=== PATIENT | male | born 1955 | race Caucasian/White ===

== ENCOUNTER 2017-01-17 20:27 | Inpatient (IN) | payer BC ==
[~2017-01-17] VITALS: Ht 188 cm; Wt 131.2 kg
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
[2017-01-17 21:10] LABS: INR - (THERAPEUTIC) 0.96 (0.92-1.07); PROTIME 10.1 SECONDS (9.8-11.4)
[2017-01-17 22:40] LABS: BILIRUBIN URINE NEGATIVE (NEGATIVE); BLOOD URINE 10 /UL (NEGATIVE); COLOR URINE YELLOW (YELLOW); GLUCOSE URINE NEGATIVE (NEGATIVE); KETONE URINE NEGATIVE (NEGATIVE); LEUKOCYTES URINE NEGATIVE /UL (NEGATIVE); NITRITE URINE NEGATIVE (NEGATIVE); PROTEIN URINE NEGATIVE (NEGATIVE); SPEC GRAVITY URINE 1.015 (1.003-1.035); TURBIDITY URINE CLEAR (CLEAR); UROBILINOGEN URINE NORMAL (NORMAL)
[2017-01-17 22:52] LABS: WBC URINE 0-2 #/HPF (NEGATIVE)
[2017-01-17 22:54] LABS: EPITHELIAL URINE RARE #/HPF (NEGATIVE); RBC URINE 0-2 #/HPF (NEGATIVE)
[2017-01-17 22:55] LABS: BACTERIA URINE RARE (NEGATIVE); MUCUS URINE NEGATIVE (NEGATIVE)
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
--- NOTE | 2017-01-18 05:38 | NUR ---
Significant Event: PATIENT IS ALERT AND ORIENTED X3. FOLLOWS COMMANDS. VSS. EQUAL MODERATE STRENGTH. PERRLA. DENIES JOHNSON. NUMBNESS TO FEET BILAT-NORMAL- HISTORY OF NON-DM NEUROPATHY. SINUS RHYTHM WITH PAC'S. 1+ PULSES BILAT. ROOM AIR-CHEST TUBE, CONTINOUS SUCTION AT 20-KEEP O2 GREATER THAN 90%-IS Q1H. REGULAR DIET-TAKES PILLOWS WHOLE WITH WATER. LAST BM 01/17-ACTIVE X4. ACTIVITY TOLERATED. PIV IN L) HAND WITH NS AT 50 ML/HR, R) AC-SL'D. SLING ORDERED FOR RIGHT ARM. PERCOCET AND DILAUDID PRN FOR PAIN. Follow up: ORTHO CONSULT IN AM.
[2017-01-18 06:01] LABS: BASOPHIL % 0.2 %; EOSINOPHIL # 0.1 K/uL (0.0-0.5); EOSINOPHIL % 0.5 %; HEMATOCRIT 39.5 % (37.0-53.0); HEMOGLOBIN 13.1 g/dL (12.0-17.0); IMMATURE GRANULOCYTE # 0.2 K/uL (0.0-0.3); IMMATURE GRANULOCYTE % 1.9 %; LYMPHOCYTE # 1.9 K/uL (0.8-4.0); LYMPHOCYTE % 17.8 %; MCH 29.5 pg (27.0-34.0); MCHC 33.2 gm/dL (32.0-36.5); MONOCYTE # 0.7 K/uL (0.0-1.0); MONOCYTE % 6.7 %; MPV 9.1 fl (9.4-12.4); NEUTROPHIL # (ANC) 7.6 K/uL (1.4-9.0); NEUTROPHIL % 72.9 %; NRBC % 0 /100WBC (0-0.00); PLATELET COUNT 222 K/uL (150-450); RBC 4.44 M/uL (4.00-6.00); RDW-CV 13.2 % (11.9-14.6); WBC 10.5 K/uL (4.0-11.0)
[2017-01-18 06:15] LABS: ANION GAP 10.8 (10.0-19.0); BLOOD UREA NITROGEN 23 mg/dL (6-24); CALCIUM 8.6 mg/dL (8.5-10.5); CHLORIDE 103 mMol/L (96-110); CO2 26 mMol/L (22-32); CREATININE 0.9 mg/dL (0.6-1.3); ESTIMATED GFR (MDRD EQUATION) > 60; POTASSIUM 3.8 mMol/L (3.7-5.1); SODIUM 136 mMol/L (135-145)
[2017-01-18] MEDS ORDERED: COREG25 MG PO (09:17)
[2017-01-18] MEDS ORDERED: ADVAIR 250-501 EACH INH (09:17)
[2017-01-18] MEDS ORDERED: HYDRODIURIL25 MG PO (09:18)
[2017-01-18] MEDS ORDERED: NEURONTIN300 MG PO (09:18)
[2017-01-18] MEDS ORDERED: MICARDIS80 MG PO (09:19)
[2017-01-18] MEDS ORDERED: MIRAPEX1 MG PO (09:19)
[2017-01-18] MEDS ORDERED: NASONEX17 GM NOSE (09:19)
[2017-01-18] MEDS ORDERED: ALBUTEROL2.5 MG/31 INH (09:20)
[2017-01-18] MEDS ORDERED: ULTRAM50 MG PO (09:20)
[2017-01-18] MEDS ORDERED: VITAMIN B-1000 MCG/M IM (09:22)
[2017-01-18] MEDS ORDERED: PROVENTIL OR V6.7 GM INH (09:23)
--- NOTE | 2017-01-18 18:31 | NUR ---
Significant Event: A/Ox3. Hypertensive 160/85 most recent blood pressure and other VSS. Denies numbness/tingling at this time and follows commands well. Ambulates 1A in room and to chair. Chest tube to R)Anterior chest with continuous suction and had 40ml output during this shift. Continous IV fluids d/c'd today. Requested Percocet 2 tabs approximately every 4 hours. Rates pain 4-5 and currently tolerable at 4/10. Takes oral antibiotic for previous bronchitis. Needs a lot of encouragement with incentive spirometer. Uses R)arm sling prn for comfort. at bedside. Calm and cooperative with cares. Follow up:
--- NOTE | 2017-01-18 18:41 | NUR ---
01/18/17: ZAHRAA MEDEIROS,RN HAS READ/REVIEWED CRYSTAL HERMAN'S RN CHARTING AND AGREES.
--- NOTE | 2017-01-19 04:35 | NUR ---
Significant Event: PATIENT IS ALERT AND ORIENTED X3. FOLLOWS COMMANDS. VSS. PERRLA. NEUROPATHY TO FEET BILAT. PAIN CONTROLLED WITH PO PERCOCET AND IVP DILUADID. SINUS RHYTHM. 1+ PULSES BLE. ROOM AIR. CHEST TUBE TO RIGHT UPPER CHEST WITH CONTINOUS SUCTION AT 20. KEEP O2 GREATER THAN 90%-PUSH IS Q1H. REGULAR DIET-ACTIVE BOWELS-ON SENNA. 1A GB. L) HAND AND R) AC PIV'S. NO CREPITUS. DRESSING INTACT. 70 ML OUTPUT. RIGHT ARM SLING-PRN. DOES HAVE A PRODUCTIVE COUGH-DARK IN COLOR. Follow up: MONITOR CHEST TUBE.
--- NOTE | 2017-01-19 15:11 | NUR ---
Introduced self and role of care management to pt. PT lives in and [place] and his [place]. At this time he is still with chest tube and gets short of breath when up but hoping the plans will be home. is concerned and is aware this is something later down the road about the mass on his kidney. I explained I will update his nurse Asa so she can speak to md. I did update Asa RN and note placed on the chart. WIll continue to follow and assist as needed.
--- NOTE | 2017-01-19 15:12 | NUR ---
Significant Event: Alert & oriented. VSS, afebrile, sats low 90's on room air. Pt feels breathing is improving but some shortness of breath with activity. Worked with PT/OT. Chest tube changed to water seal. Milk of Mag given, no BM yet but passing gas. Percocet given for pain control. Sling to R) arm. CSM intact with chronic neuropathy to bilat feet. Follow up: Chest X-ray Thursday.
--- NOTE | 2017-01-20 04:33 | NUR ---
Significant Event: The patient is alert and oriented x3. Denies Numbness and Tingling tonight. VSS. On 1L oxgyen per NC. Moves all extremities spontaneously and to commmand. Right arm moves with difficulty due to scapula fracture. Right arm in a sling for comfort. PIV to the Left hand and Right AC saline locked. Complaints of pain to his ribs and scapula gave Percocet last at 0332. Chest tube in his right chest to waterseal. Dressing changed this shift, 80ML Out this shift. Bruising to right chest. Up with SBA. SOB with activity. Follow up:
--- NOTE | 2017-01-20 13:36 | NUR ---
Significant Event: Cares from 0688-1133. A/Ox3. CSM WNL. VSS. Aumbulates SBA and has continuous IV fluids in left AC. Dressing to right groin c/d/i. History of a left eye droop. Appears to have strong strength in upper and lower extremities equally. Denies pain or discomfort throughout morning. MRI done this morning. Calm and cooperative with cares. Follow up:
--- NOTE | 2017-01-20 13:43 | NUR ---
Significant Event: Cares from [id number]. A/Ox3. VSS and on room air. Ambulates SBA. Chest tube to right chest on water seal. Percocet last at 1130. Physician spoke with patient and family today and telemetry d/c'd. Chest tube possibly going to be removed tomorrow. Wears sling to right arm prn for comfort. Denies numbness or tingling and follows commands without difficulty. at bedside. Calm and cooperative with cares. Follow up:
--- NOTE | 2017-01-20 14:16 | NUR ---
01/20/17: ZAHRAA MEDEIROS,RN HAS READ/REVIEWED CRYSTAL HERMAN'S RN CHARTING AND AGREES. (SHE WAS PRIMARY NURSE AND TOOK OVER PT CARES FROM [id number] AND I WAS OVERSEEING HER CARES).
--- NOTE | 2017-01-20 19:47 | NUR ---
Significant Event: TOOK OVER PT CARES AT 1400. NO CHANGES NOTED FROM PREVIOUS ASSESSMENTS. 2 PERCOCETS LAST GIVEN AT 1539. 120 ML NOTED FROM CHEST TUBE. HAS BEEN RESTING COMFORTABLY IN THE CHAIR. Follow up: CONTINUE TO MONITOR
--- NOTE | 2017-01-21 06:53 | NUR ---
Significant Event:Patient A/O x 3. Perrla. Chronic neuropathy to bilateral feet, states not painful this shift. Follows commands. RUE weaker due to fx. Sling intact for comfort. No telemetry order. Edema glove to right hand. Lungs clear and dim throughout. 1 L of 02 while sleeping. Uses IS and flutter valve per self. Pain with coughing. Chest tube intact to right side. 110 ml for output this shift. Dressing intact. Regular diet. Bowel sounds active. BM yesterday. SBA. IV to right AC saline locked. Percocet given for rib pain last at 0345 x 2 tabs, relief noted. Follow up: Possibly home today?
--- NOTE | 2017-01-21 13:03 | NUR ---
Social visit with pt and today. He had a bad night but hoping today will be better. He is up walking and doing ok. He plans on home when ready. They live in a trailer house with only 2 steps in, nice recliner and I did mention a toliet seat riser just in case. He is not using any dme. He does not think he will need swingbed and I agreed because he is walking 300ft stand by assistance. Plan now for surgery on his kidney in January. He states he does doctor in [facility] if needed. AT this time will assist as needed.
--- NOTE | 2017-01-21 13:41 | NUR ---
Significant Event: PATIENT A/O X 3. FOLLOWS COMMANDS. N/T INTERMITTENTLY TO LOWER EXTREMITIES RELATED TO NEUROPATHY. MODERATE STRENGTH, SLIGHTLY WEAKER IN RT HAND. SLING TO RT ARM FOR COMFORT. LUNGS CLEAR AND DIM ON ROOM AIR. SLIGHT WHEEZE AT TIMES. 2+EDEMA TO RT HAND AND LOWER EXTREMITIES. CHEST TUBE TO WATER SEAL TO RT CHEST. POSSIBLY WILL BE REMOVED TMRW OR IN THE NEXT FEW DAYS DEPENDING ON OUTPUT. RT A/C IV SALINE LOCKED. UP WITH STANDBY ASSIST AND GAITBELT. PAIN FAIRLY TOLERABLE WITH PRN PERCOCET. LAST AT 1335. ORDER FOR NO TELE. Follow up: PAIN CONTROL. CHEST TUBE OUTPUT. HOME DAY AFTER TUBE REMOVED.
--- NOTE | 2017-01-22 04:34 | NUR ---
Significant Event: The patient is alert and oriented x3. Denies numbness and tingling. Moves all extremities spontaneously and to command. Up with SBA, gaitbelt. Right arm moves with difficulty due to scapula fracture. Right arm in a sling for comfort. Pain to the right Scapula and Right ribs gave Percocet at 0337. VSS. On 1L oxygen while sleeping. Edema to bilateral legs/feet, and right hand. PIV to the right AC saline locked. Chest tube to the Right chest to water seal. Output this shift is 50ml. Dressing changed at 1900. Follow up: chest xray
--- NOTE | 2017-01-22 13:05 | NUR ---
Significant Event: Vss. Patient alert and oriented x 3. Follows commands. Rt hand very slightly weaker related to scapula fracture. Rt arm in sling for comfort. Rt chest tube removed today per Dr. Pritchett. Dressing to rt chest dry and intact. C/o pain to rt scapula and rt ribs, tolerated well with PRN Percocet. Up with standby assist and gaitbelt. Follow up: Home tmrw? Pain control.
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
[2017-01-23] MEDS ORDERED: SM SENNA-S TAB1 EACH PO (10:55)
[2017-01-23] MEDS ORDERED: MILK OF MA400 MG/5 M PO (11:00)
[2017-01-23] MEDS ORDERED: PERCOCET 5-3251 EACH PO (11:02)
--- NOTE | 2017-01-23 12:56 | NUR ---
Significant Event: A&O, VSS, afebrile, room air sats 91-92%. Chest xray done early AM. IV removed from R)AC. Discharge paperwork discussed, verbalized understanding. Belongings with patient. Two tabs Percocet given before dismissal. Transport BEE RANCHER escorted to vehicle, dismissed to home.
[2017-02-03] MEDS ORDERED: ASPIRIN325 MG PO (15:47)
[2017-02-03] MEDS ORDERED: CELEBREX200 MG PO (15:48)
== END 2017-01-23 11:37 | disposition disaster alternative care site (69) | DRG 200 ==
LOC: GACC 20:27 → GNTU 22:48
PROVIDERS: Family Medicine; ADMIT Surgery
PROC: 0W9930Z Drainage of Right Pleural Cavity with Drainage Device, Percutaneous Approach (ICD-10-PCS; principal; 2017-01-17)
DX: S27.0XXA Traumatic pneumothorax, initial encounter (principal); S22.41XA Multiple fractures of ribs, right side, initial encounter for closed fracture; G62.9 Polyneuropathy, unspecified; I10 Essential (primary) hypertension; V86.59XA Driver of other special all-terrain or other off-road motor vehicle injured in nontraffic accident, initial encounter; M19.90 Unspecified osteoarthritis, unspecified site; J45.909 Unspecified asthma, uncomplicated; N28.89 Other specified disorders of kidney and ureter; S42.114A Nondisplaced fracture of body of scapula, right shoulder, initial encounter for closed fracture; F17.220 Nicotine dependence, chewing tobacco, uncomplicated
CPT/HCPCS: J1170; J1650; J3010; J7030; Q9967

== ENCOUNTER 2017-02-03 16:00 | Inpatient (IN) | payer BC ==
[~2017-02-03] VITALS: Ht 188 cm; Wt 124.7 kg
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
[~2017-02-03 16:00] MED LIST: ADVAIR 250-501 EACH INH; ALBUTEROL2.5 MG/31 INH; ASPIRIN325 MG PO; CELEBREX200 MG PO; COREG25 MG PO; HYDRODIURIL25 MG PO; MICARDIS80 MG PO; MILK OF MA400 MG/5 M PO; MIRAPEX1 MG PO; NASONEX17 GM NOSE; NEURONTIN300 MG PO; PERCOCET 5-3251 EACH PO; PROVENTIL OR V6.7 GM INH; SM SENNA-S TAB1 EACH PO; ULTRAM50 MG PO; VITAMIN B-1000 MCG/M IM
[2017-02-10 06:07] LABS: BASOPHIL % 0.4 %; EOSINOPHIL # 0.1 K/uL (0.0-0.5); EOSINOPHIL % 0.8 %; HEMATOCRIT 37.4 % (37.0-53.0); HEMOGLOBIN 12.5 g/dL (12.0-17.0); IMMATURE GRANULOCYTE # 0.2 K/uL (0.0-0.3); IMMATURE GRANULOCYTE % 1.7 %; LYMPHOCYTE # 1.7 K/uL (0.8-4.0); LYMPHOCYTE % 15.8 %; MCH 29.8 pg (27.0-34.0); MCHC 33.4 gm/dL (32.0-36.5); MONOCYTE % 9.2 %; MPV 8.9 fl (9.4-12.4); NEUTROPHIL # (ANC) 7.8 K/uL (1.4-9.0); NEUTROPHIL % 72.1 %; NRBC % 0 /100WBC (0-0.00); PLATELET COUNT 216 K/uL (150-450); RDW-CV 13.1 % (11.9-14.6); WBC 10.9 K/uL (4.0-11.0)
[2017-02-10 06:22] LABS: ALBUMIN 3.2 gm/dL (3.5-5.0); ALK PHOS 135 IU/L (33-138); ALT 24 IU/L (12-78); AST 14 IU/L (10-40); BLOOD UREA NITROGEN 19 mg/dL (6-24); CALCIUM 9.1 mg/dL (8.5-10.5); CHLORIDE 101 mMol/L (96-110); CO2 26 mMol/L (22-32); CREATININE 0.9 mg/dL (0.6-1.3); ESTIMATED GFR (MDRD EQUATION) > 60; SODIUM 135 mMol/L (135-145); TOTAL BILIRUBIN 0.6 mg/dL (0.0-1.5)
--- NOTE | 2017-02-10 15:34 | NUR ---
Significant Event: Patient came up from PACU at 1130. VSS. CSM WNL. Morphine METROLOGY ENGINEER running at 10/05/19. Dressing was reinforced in PACU with ABD on left side. Drainage marked. 3L/O2. Blanco intact draining dark yellow urine. Patient is on bedrest. Diet is advance astolerated. Encourage IS. Follow up:
--- NOTE | 2017-02-11 04:54 | NUR ---
Significant Event: Dressing has a large amount of shadow drainage and has not worsened from the previous shift. On 3 L of oxygen nasal cannula. Bedrest. R) foot numb, but patient states that this is normal. Morphine CAMPUS RECRUITER. Blanco catheter. Follow up:
[2017-02-11 05:35] LABS: BASOPHIL % 0.1 %; HEMATOCRIT 33.1 % (37.0-53.0); IMMATURE GRANULOCYTE # 0.2 K/uL (0.0-0.3); IMMATURE GRANULOCYTE % 1.2 %; LYMPHOCYTE % 6.8 %; MCH 29.8 pg (27.0-34.0); MCHC 33.2 gm/dL (32.0-36.5); MCV 89.7 fl (83.0-98.0); MONOCYTE % 6.6 %; MPV 9.2 fl (9.4-12.4); NEUTROPHIL # (ANC) 12.4 K/uL (1.4-9.0); NEUTROPHIL % 85.3 %; NRBC % 0 /100WBC (0-0.00); PLATELET COUNT 194 K/uL (150-450); RBC 3.69 M/uL (4.00-6.00); RDW-CV 12.9 % (11.9-14.6); WBC 14.6 K/uL (4.0-11.0)
[2017-02-11 05:52] LABS: ALBUMIN 2.7 gm/dL (3.5-5.0); ANION GAP 12.5 (10.0-19.0); BLOOD UREA NITROGEN 16 mg/dL (6-24); CALCIUM 8.8 mg/dL (8.5-10.5); CHLORIDE 102 mMol/L (96-110); CO2 27 mMol/L (22-32); CREATININE 1.1 mg/dL (0.6-1.3); ESTIMATED GFR (MDRD EQUATION) > 60; PHOSPHORUS 3.5 mg/dL (2.5-4.9); POTASSIUM 4.5 mMol/L (3.7-5.1); SODIUM 137 mMol/L (135-145)
--- NOTE | 2017-02-11 12:15 | NUR ---
Introduced self/role to patient, lives in with his [place]. She is a school bus inspector and about out for the summer. His parents also live close. Denied any discharge needs or DME needs. Added my name to his marker board, will continue to follow.
--- NOTE | 2017-02-11 18:09 | NUR ---
Significant Event: Patient is alert and oriented to person, time, place. Vital signs stable, titrated to room air. ETCO2 monitor on. UNIVERSAL BANKER Morphine 1mg demand, 8 minute lockout. Patient has had 31 demands, 31 deliveries on UNIVERSAL BANKER. Blanco catheter patent. Student nurse performed pericare and applied scheduled neosporin. Patient up to chair with 2 assist, tolerated. in room most of day. Diet as tolerated. Drsng on back is CDI, was reinforced on 02/10/17. Plan for d/c is home when ready. Follow up: Continue to monitor.
--- NOTE | 2017-02-12 04:02 | NUR ---
Significant Event: Sleeping for long periods tonight. Afebrile, all other VSS. Continues on 2L O2 per NC with sats 91-94%. Morphine INFANTRY WEAPONS CREWMEMBER continues with 27 demands and 26 deliveries. PIV to L) wrist patent and infusing without complications. Dressing to L) flank is dry and intact. Moderate amount of shadow drainage is noted on dressing. Blanco catheter to DD, draining clear yellow urine. Up to chair and back to bed with 1 assist. Bowel sounds hypoactive x4 quadrants. Patient given yudi mist for c/o bloating, did get some relief. Pleasant and cooperative with cares. Follow up:
[2017-02-12 05:38] LABS: ANION GAP 12.3 (10.0-19.0); BLOOD UREA NITROGEN 18 mg/dL (6-24); CALCIUM 8.7 mg/dL (8.5-10.5); CHLORIDE 99 mMol/L (96-110); CO2 29 mMol/L (22-32); ESTIMATED GFR (MDRD EQUATION) > 60; POTASSIUM 4.3 mMol/L (3.7-5.1); SODIUM 136 mMol/L (135-145)
--- NOTE | 2017-02-12 19:45 | NUR ---
Significant event: Has ambulated in tompkins twice today with 2 assist, front wheeled walker, gait belt, and O2. Has been on 2 liters of O2 this shift, when he removes O2 himself his SAO2 drops to 88%. Pain controlled with Morphine MOLD POLISHER did have one time dose of toradol. 1800 Coreg held due to BP. Blanco draining clear yellow urine.
--- NOTE | 2017-02-13 04:46 | NUR ---
Significant Event: Patient is alert and oriented x 3. VSS on 2L of O2. Up with 1-2 assist, walker, and gait belt. Ambulated in the tompkins x 1 this shift. [place] to left side incision intact. Dressing to right bottom of foot is intact. Blanco intact. 2150 mls out. 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 Patient is pleasant and cooperative with cares. Follow up:
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
--- NOTE | 2017-02-14 04:57 | NUR ---
Significant Event: PATIENT IS ALERT AND ORIENTATED X 3 AMBULATES WITH GB WALKER AND STAND BY ASSIST. VSS ON 2L O2. TAY TO LEFT LOWER ABDOMEN AND SIDE.. DRY AND INTACT OPEN TO ROOM AIR. L W IV SL. PAIN IS RELIEVED WITH PO NORCO GIVEN X2 LAST DOSE AT 0252. PATIENT WALKED IN HALLS X2 THIS SHIFT. PATIENT IS COOPERATIVE WITH CARES AND PLEASANT. Follow up:
[2017-02-14 05:36] LABS: BASOPHIL # 0.1 K/uL (0.0-0.2); BASOPHIL % 0.6 %; EOSINOPHIL # 0.8 K/uL (0.0-0.5); EOSINOPHIL % 8.8 %; HEMATOCRIT 30.7 % (37.0-53.0); HEMOGLOBIN 10.1 g/dL (12.0-17.0); IMMATURE GRANULOCYTE # 0.4 K/uL (0.0-0.3); IMMATURE GRANULOCYTE % 4.8 %; LYMPHOCYTE # 1.3 K/uL (0.8-4.0); LYMPHOCYTE % 14.1 %; MCH 29.4 pg (27.0-34.0); MCHC 32.9 gm/dL (32.0-36.5); MCV 89.2 fl (83.0-98.0); MONOCYTE # 0.7 K/uL (0.0-1.0); MONOCYTE % 7.3 %; MPV 9.2 fl (9.4-12.4); NEUTROPHIL # (ANC) 5.9 K/uL (1.4-9.0); NEUTROPHIL % 64.4 %; NRBC % 0 /100WBC (0-0.00); PLATELET COUNT 222 K/uL (150-450); RBC 3.44 M/uL (4.00-6.00); RDW-CV 12.9 % (11.9-14.6); WBC 9.1 K/uL (4.0-11.0)
[2017-02-14 05:46] LABS: ANION GAP 12.5 (10.0-19.0); CALCIUM 8.5 mg/dL (8.5-10.5); CREATININE 1.3 mg/dL (0.6-1.3); POTASSIUM 4.5 mMol/L (3.7-5.1)
--- NOTE | 2017-02-14 17:18 | NUR ---
Significant Event: Patient alert and oriented. Up to the bathroom with standby assist and ambulated in the hallway x 4. Patient has been up in the recliner all shift and states that it is more comfortable than the bed. Stewart 1 tab given x 2 doses with the last at 1220. L) flank incision approximated with ike. One small, intact blister noted to L) mid back. Patient states voiding without difficulty. Patient passing flatus but no BM. New order for Mag citrate 240 ml x 1 which was given at 1615. Follow up: Dismissal tomorrow.
--- NOTE | 2017-02-15 04:07 | NUR ---
Significant Event: PATIENT IS ALERT AND ORIENTATED WALKS IN ROOM INDEPENDENTLY AT [facility]. WALKED WITH STANDBY ASSIST AND GB IN [place] X3. HAS CONTINUED TO BE IN THE RECLINER THIS SHIFT PATIENT STATES HE IS NOT COMFORTABLE IN BED IT MAKES HIS INCISION SIDE HURT. HAD MULTIPLE SOLID FORMED BM'S THIS SHIFT FOLLOWING DOSE OF MAG CITRATE. STATES HIS STOMACH FEELS MUCH BETTER. NORCO 1 TAB AND TYLENOL GIVE X1 EACH FOR PAIN. BLISTER POPPED NOW HAS SMALL OPEN AREA TO L MID BACK. PLEASANT AND COOPERATIVE WITH CARES. Follow up:
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
[2017-02-15] MEDS ORDERED: CELEBREX200 MG PO (10:52)
[2017-02-15] MEDS ORDERED: AUGMENTIN 875-1 EACH PO (10:52)
--- NOTE | 2017-02-18 16:19 | NUR ---
Post hospitalization follow up call made to patient. Patient reports that he is doing well. Has made his follow up appointment with Dr. Harrison and will be having his ike removed by his local doctor on February 20. Patient reports that his hospitalization "went well".
== END 2017-02-15 12:21 | disposition disaster alternative care site (69) | DRG 658 ==
LOC: GSDC 16:00 → GPOC 16:00 → GMSU 02-10 05:06 → GSDC 02-10 05:15 → GMSU 02-10 12:31 → EDSTATUS 02-10 16:00 → GSDC 02-10 16:00 → GMSU 02-15 12:21
PROVIDERS: Nurse Practitioner Family; ADMIT Urology
DX: C64.2 Malignant neoplasm of left kidney, except renal pelvis (principal); G62.9 Polyneuropathy, unspecified; I10 Essential (primary) hypertension; J45.909 Unspecified asthma, uncomplicated; M19.90 Unspecified osteoarthritis, unspecified site; J40 Bronchitis, not specified as acute or chronic; L97.519 Non-pressure chronic ulcer of other part of right foot with unspecified severity; K59.00 Constipation, unspecified
CPT/HCPCS: J0690; J1170; J1650; J1885; J2250; J2270; J7030; J7120